=== PATIENT | male | born 1945 | race Caucasian/White ===

== ENCOUNTER 2022-04-03 07:50 | Outpatient (CLI) | payer MEDICARE, SELFPAY ==
[2022-04-03 09:33] LABS: Albumin* 4.1 g/dL (3.3-5.0); Chloride* 103 mmol/L (96-114)
[2022-04-03 09:34] LABS: Potassium* 4.4 mmol/L (3.6-5.1); Sodium* 137 mmol/L (135-149)
[2022-04-03 09:36] LABS: Aspartate Amino Transferase* 23 U/L (12-35); Bilirubin Total* 0.8 mg/dL (0.1-1.5); Blood Urea Nitrogen* 21 mg/dL (7-30); Carbon Dioxide* 31 mmol/L (20-32); Cholesterol* 215 mg/dL (90-199); Creatinine* 0.9 mg/dL (0.5-1.5); Estimated Glomerular Filt Rate 89 ml/min; Glucose* 94 mg/dL (60-115); Total Protein* 6.8 g/dL (6.0-8.3)
[2022-04-03 09:37] LABS: Alanine Aminotransferase* 20 U/L (4-50); Alkaline Phosphatase* 48 U/L (40-150); Calcium* 9.4 mg/dL (8.4-10.6); HDL Cholesterol* 64 mg/dL (>=40); LDL Cholesterol Calculated 126 mg/dL (<100); Triglycerides* 126 mg/dL (40-149)
[2022-04-03 10:02] LABS: PSA Screen* 1.93 ng/mL (0.10-4.00)
== END 2022-04-03 07:51 | disposition home or self-care (01) ==
PROVIDERS: PCP Internal Medicine; Visit Provider Internal Medicine
DX: Z00.00 Encounter for general adult medical examination without abnormal findings (principal); I10 Essential (primary) hypertension; E78.5 Hyperlipidemia, unspecified; Z12.5 Encounter for screening for malignant neoplasm of prostate
CPT/HCPCS: 80053; 80061; 84153

== ENCOUNTER 2022-11-23 09:13 | Outpatient (CLI) | payer MEDICARE, SELFPAY ==
--- NOTE | 2022-11-23 09:58 | W.ANESCHARGE ---
Anesthesia Charges Start Date/Time Anesthesia Start Date: 11/23/22 Anesthesia Start Time: 10:15 Stop Date/Time Anesthesia Stop Date: 11/23/22 Anesthesia Stop Time: 11:19 Summary Extremes of Age - Over 70 or under 1: MDA
--- NOTE | 2022-11-23 11:22 | P.ANES_ITS ---
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
== END 2022-11-23 09:14 | disposition home or self-care (01) ==
LOC: OP CLINIC 09:14
PROVIDERS: PCP Internal Medicine; Visit Provider Surgery
DX: Z12.11 Encounter for screening for malignant neoplasm of colon (principal); K63.5 Polyp of colon; Z86.010 Personal history of colon polyps
CPT/HCPCS: 00811; 45385; 99100; J2704

== ENCOUNTER 2023-04-06 07:32 | Outpatient (CLI) | payer MEDICARE, SELFPAY | END 2023-04-06 07:33 | disposition home or self-care (01) | LOC: NFLDREF 04-18 11:43 | PROVIDERS: PCP Internal Medicine; Referring Provider Internal Medicine; Visit Provider Internal Medicine | DX: Z13.228 Encounter for screening for other metabolic disorders (principal); Z12.5 Encounter for screening for malignant neoplasm of prostate; Z13.220 Encounter for screening for lipoid disorders | CPT/HCPCS: 80053; 80061; G0103 ==

== ENCOUNTER 2024-04-11 08:06 | Outpatient (CLI) | payer MEDICARE, SELFPAY | END 2024-04-11 08:07 | disposition home or self-care (01) | LOC: NFLDREF 04-14 02:14 | PROVIDERS: PCP Internal Medicine; Referring Provider Internal Medicine; Visit Provider Internal Medicine | DX: E78.5 Hyperlipidemia, unspecified (principal); I10 Essential (primary) hypertension; Z12.5 Encounter for screening for malignant neoplasm of prostate | CPT/HCPCS: 80053; 80061; G0103 ==